=== PATIENT | male | born 1985 | race Caucasian/White ===

== ENCOUNTER 2024-10-19 00:37 | Emergency (ER) | payer SELFPAY ==
[2024-10-19] MEDS ORDERED: Ketorolac Tromethamine 30 MG (1 mL) VIAL ONE (01:00)
== END 2024-10-19 01:33 | disposition home or self-care (01) ==
LOC: CSHERS 00:37
DX: M19.032 Primary osteoarthritis, left wrist (principal); Z87.891 Personal history of nicotine dependence
CPT/HCPCS: 96372; 99283; J1885